=== PATIENT | female | born 1935 | race Caucasian/White ===

== ENCOUNTER 2023-11-06 21:08 | Inpatient (IN) | payer MEDICARE, SELFPAY ==
--- NOTE | ~2023-11-06 | US_ITS ---
EXAMINATION: ULTRASOUND RENAL WITH DOPPLER CLINICAL INFORMATION: Uncontrolled hypertension COMPARISON: None. TECHNIQUE: Real-time grayscale, color Doppler, and duplex Doppler evaluation of the kidneys and renal vasculature was performed. Technical limitations secondary to respiratory motion. FINDINGS: RENAL MEASUREMENTS: Right: 9.4 x 4.3 x 4.5 cm (Sag x AP x TV). No nephrolithiasis or hydronephrosis. Simple appearing cystic focus resulting in measuring up to 2.5 cm, not requiring follow-up. Left: 8.4 x 5.2 x 4.4 cm (Sag x AP x TV). No nephrolithiasis or hydronephrosis. Prevoid urinary bladder volume of 877 mL. Bilateral ureteral jets are identified. Postvoid bladder volume of 619 mL. DOPPLER INTERROGATION: Aorta: 115 cm/sec (of note velocities greater than 100 cm/s cannot be used to calculate the RAR) RIGHT: Main Renal Artery: Proximal: 146 cm/sec Mid: 86 cm/sec Distal: 91 cm/sec Resistive Index: Upper Pole Interlobar: 0.89 Inter Polar Interlobar: 0.81 Lower Pole Interlobar: 0.79 Right renal vein is patent. LEFT: Main Renal Artery: Proximal: 235 cm/sec Mid: 198 cm/sec Distal: 204 cm/sec Resistive Index: Upper Pole Interlobar: 0.71 Inter Polar Interlobar: 0.74 Lower Pole Interlobar: 0.80 Left renal vein is patent. Renal-Aortic Ratio (RAR): Right: Not applicable given mid aortic velocities greater than 100 cm/s Left: Not applicable given mid aortic velocities greater than 100 cm/s US/US renal doppler IMPRESSION: 1. RIGHT: No sonographic evidence of renal artery stenosis in its main segment. Elevated resistivity indices involving the right interlobar renal arteries suggesting elements of hemodynamic alterations in vascular flow. 2. LEFT: Elevated velocities throughout the proximal, mid, and distal segments of the main left renal artery suggesting stenosis. Degree of stenosis utilizing RAR is not calculable given elevated mid aortic velocity greater than 100 cm/s. Elevated interlobar resistivity indices involving the lower pole suggesting elements of hemodynamic alterations in vascular flow. 3. No nephrolithiasis or hydronephrosis. 4. Right renal interlobar simple cyst measuring up to 2.5 cm, not requiring follow-up. 5. Bilateral ureteral jets are identified with significant postvoid residual of 619 mL.
[2023-11-06 22:09] VITALS: BMI 22.9
[2023-11-07] VITALS (9 sets, daily range): BP systolic 174–215; BP diastolic 58–91; PULSE 43–61; RESP 16–18; TEMP 36.2–36.3; O2SAT 95–99
--- NOTE | 2023-11-07 02:30 | PC.ADMIT ---
pt is a hospital to hospital transfer arriving from [facility]. pt is a recent . her approximately 1 month ago. after, her husbands pt was experiencing hallucinations and delusions that a mother and a daughter had moved into her attic. please note pt is [place]. pt is orientatedx3 spheres. she is able to ambulate independently. while at the previous hospital, pt has found to be profoundly htn (245/91). unfortunately pt was also noted to be hyponatremic with initial na+ of 124. pt was placed on 2000ml/day water restriction and started on nacl tablets. her na+ increasing to 130. on arrival, pt signed cv-document. sensorium is intact. pt talks about living alone in her house with her dog. pt is polite and can be easily distracted from the interview. med reconciliation form complete and dr pa notified of admission. please note pt has DNR paper work that has accompanied her and can be found in chart under consent and legal forms.
[2023-11-07 07:53] LABS: MANUAL DIFF FLAG NO
[2023-11-07 08:04] LABS: Basophils Absolute Auto 0.1 X10*3/uL (0.0-0.2); Basophils Percent Auto 0.6 % (0-2); Eosinophils Absolute Auto 0.4 X10*3/uL (0.0-0.4); Eosinophils Percent Auto 3.7 % (0-4); Hemoglobin 11.1 g/dl (12.0-16.0); Imm Gran Abs Auto 0.06 X10*3/uL (0.00-0.03); Imm Gran Pct Auto 0.6 % (0.0-0.4); Lymphocytes Absolute Auto 1.5 X10*3/uL (1.2-4.9); Mean Corpuscular HGB Conc 33.6 g/dl (31.0-35.0); Mean Corpuscular Hemoglobin 31.8 pg (27.0-33.0); Mean Corpuscular Volume 94.6 fL (80.0-98.0); Mean Platelet Volume 9.8 fL (9.4-12.3); Monocytes Absolute Auto 1.3 X10*3/uL (0.1-1.2); Monocytes Percent Auto 12.3 % (2-11); Neutrophils Absolute Auto 7.2 x10*3/uL (2.0-8.3); Neutrophils Percent Auto 68.8 % (45-73); Platelet Count 317 X10*3/uL (160-400); Red Blood Count 3.49 X10*6/uL (4.20-5.50); Red Cell Distribution Width 12.5 % (11.0-16.0); White Blood Count 10.4 X10*3/uL (4.8-10.8)
[2023-11-07 08:13] LABS: Estimated Average Glucose 128 mg/dL; Hemoglobin A1c % 6.1 % (<6.0)
[2023-11-07 08:23] LABS: Alanine Aminotransferase 20 U/L (0-31); Albumin Level 3.7 g/dL (3.5-5.0); Alkaline Phosphatase 90 U/L (39-117); Anion Gap 11 (12-20); Aspartate Amino Transferase 17 U/L (5-31); Bilirubin Total 0.4 mg/dL (0.0-1.0); Blood Urea Nitrogen 11 mg/dL (9-16); Calcium 9.3 mg/dL (8.4-10.2); Carbon Dioxide 22 mmol/L (22-29); Chloride 101 mmol/L (96-108); Cholesterol 194 mg/dL (<200); Creatinine Clr Calc Pharmacy 39.9; Estimated Glomerular Filt Rate > 60; Glucose Fasting 132 mg/dL (60-99); HDL Cholesterol 69 mg/dL (>40); LDL Cholesterol Calculated 108 mg/dL (<100); Potassium 4.5 mmol/L (3.3-5.1); Sodium 129 mmol/L (135-145); Total Protein 6.7 g/dL (6.5-8.0); Triglycerides 85 mg/dL (<150)
[2023-11-07] MEDS: cloNIDine HCL 0.1 MG TABLET PO (08:30)
[2023-11-07 08:38] LABS: TSH reflex Free T4 6.02 uIU/mL (0.32-4.0)
--- NOTE | 2023-11-07 09:24 | P.CONHOSP_ITS ---
History of Present Illness Data of Consult Service Date: 11/07/23 Requesting physician: Negro Burdick Primary Care Provider: Marin Salvador MD [facility] Reason for consult: medical management, htn 88-year-old female with history of anxiety, glaucoma, hearing loss, hypertension, hyperlipidemia, hypothyroidism, chronic hyponatremia, impaired fasting glucose admitted to Geriatric Psychiatry from [facility] with consult placed hospitalist service for medical H&P. The patient denies any complaints at this time. Her blood pressure this morning was significantly 202/58, unclear when the last time she had her antihypertensive agents. There are no focal neurological deficits. While in the ED, hematology studies unremarkable. Renal function within normal limits. She has a chronic hyponatremia with Na 126 at [facility] and chloride 91. She was placed on 2 L fluid restrictions and started on sodium chloride tablets with improvement in sodium to 130. Serum osmolality 253, urine sodium 29, suspected hypotonic hyponatremia/?SIADH. Patient has now received am doses of antihypertensives including 100 mg labetalol, 100 mg losartan, 0.1 mg clonidine, 240 mg diltiazem, and 75 mg hydralazine. Repeat BP 179/78. BP reportedly uncontrolled while admitted at [place]. Review of Systems 2 Review of Systems: General: No fevers, malaise, unintentional weight loss HEENT: No blurred vision, diplopia. No sore throat, nasal congestion, rhinorrhea, sinus pain, ear pain Cardiovascular: No chest pain, palpitations, or leg edema Respiratory: No shortness of breath, wheezing, cough GI: No abdominal pain, nausea, vomiting, diarrhea, constipation, melena, hematochezia : No dysuria, hematuria, increased urinary frequency, decreased urinary output MSK: No myalgia, back pain Neuro: No headaches, weakness, paresthesias Skin: No rashes or lesions [facility] Medical History (Updated 11/07/23 @ 10:15 by KAIT Urrutia) Glaucoma Anxiety Impaired fasting glucose Hyponatremia Hypothyroidism Hyperlipidemia Hypertension Social History Household Members: None Housing: House Do you presently have visiting nurse or other home services: No Patient Tobacco Use Status: Never used Tobacco e-Cigarette/Vaping Use: Never Used Use of substances other than those prescribed or required for medical reasons: No Currently Displaying Signs/Symptoms of Drug Intoxication Withdrawal: No Have you been hit, kicked, punched, or otherwise hurt by someone within the past year? If so, by whom?: No Do you feel safe in your current relationship?: No Current Relationship Is there a partner from a previous relationship who is making you feel unsafe now?: No Are you made to feel afraid or neglected: No Advance Directives: Yes (DNR) Advance Directives Information Provided: Yes Do you have thoughts of harming others: None Do you have a plan to hurt others: No Plan Recently lost weight without trying: No Eating poorly because of decreased appetite: No Nutrition Risks: No Nutritional Risk Patient : No : No Poor oral hygiene: No Meds Allergies Allergy/AdvReac Type Severity Reaction Status Date / Time tramadol Allergy Unknown Unknown Verified 11/06/23 21:53 Active Medications: Current Medications Acetaminophen (Acetaminophen 325 Mg Tablet) 650 mg PO Q6H PRN PRN Reason: Headache/Pain Mild Scale (1-3) Al Hydroxide/Mg Hydroxide (Magnesium Hydrox/Alum Hydrox 30 Ml Oral.Susp) 30 ml PO Q6H PRN PRN Reason: Heartburn/Nausea Brimonidine Tartrate (Brimonidine Tartrate 0.2% Oph 5 Ml Bottle) 1 drop EYE- BOTH TID HINA Diltiazem HCl (Diltiazem Hcl Cd 240 Mg Cap.Er.Deg) 240 mg PO DAILY HINA Famotidine (Famotidine 20 Mg Tablet) 20 mg PO BEDTIME HINA Hydralazine HCl (Hydralazine Hcl 50 Mg Tablet) 50 mg PO Q8H PRN; Protocol PRN Reason: SBP>160 or DBP>100 Hydralazine HCl (Hydralazine Hcl 25 Mg Tablet) 75 mg PO TID HINA Labetalol HCl (Labetalol Hcl 100 Mg Tablet) 100 mg PO TID HINA; Protocol Latanoprost (Latanoprost 0.005 % Ophth Ellen 2.5 Ml Drops) 1 drop EYE-BOTH BEDTIME HINA Levothyroxine Sodium (Levothyroxine Sodium 75 Mcg Tablet) 75 mcg PO DAILY@0630 [facility] Losartan Potassium (Losartan Potassium 50 Mg Tablet) 100 mg PO DAILY [facility] Magnesium Hydroxide (Milk Of Magnesia 30 Ml Oral.Susp) 30 ml PO DAILY PRN PRN Reason: Constipation Melatonin (Melatonin 3 Mg Tablet) 6 mg PO BEDTIME HINA Last Admin: 11/07/23 02:15 Dose: Not Given Olanzapine (Olanzapine 2.5 Mg Tablet) 2.5 mg PO TID PRN PRN Reason: agitation Quetiapine Fumarate (Quetiapine Fumarate 25 Mg Tablet) 25 mg PO BEDTIME HINA Sodium Chloride (Sodium Chloride Tab 1 Gm Tablet) 1 gm PO TID HINA Trazodone HCl (Trazodone Hcl 25 Mg Halftab) 25 mg PO BEDTIME MRX1 PRN PRN Reason: Insomnia Home Medications ?Medication ?Instructions ?Recorded ?Confirmed ?Last Taken ?Type Seroquel 25 mg PO BEDTIME 11/06/23 11/07/23 Unknown History labetalol 100 mg tablet 100 mg PO TID 11/06/23 11/07/23 Unknown History sodium chloride 1,000 mg PO TID 11/06/23 11/07/23 Unknown History DILT-CD 240 mg PO DAILY 11/07/23 11/07/23 Unknown History brimonidine 0.15 % eye drops 1 drp ophthalmic (eye) TID 11/07/23 11/07/23 Unknown History famotidine 20 mg PO BEDTIME 11/07/23 11/07/23 Unknown History hydralazine 75 mg PO TID 11/07/23 11/07/23 Unknown History latanoprost 0.005 % eye drops 1 drp ophthalmic (eye) BEDTIME 11/07/23 11/07/23 Unknown History levothyroxine 0.075 mg PO DAILY@0630 11/07/23 11/07/23 Unknown History losartan 100 mg PO DAILY 11/07/23 11/07/23 Unknown History Physical Exam 2 Vital Signs and Narrative: Vital Signs: BMI result Body Mass Index 22.9 Constitutional - Awake and Alert, No apparent distress Eyes - PERRLA, EOMI Cardiovascular - S1S2, RRR, No edema Respiratory - Normal lung expansion, Normal respiratory effort, No respiratory distress, CTA bilaterally Gastrointestinal - NT / ND; +BS; No rebound or guarding Extremities - no calf tenderness bilaterally, no swelling Musculoskeletal - Normal inspection, normal ROM Skin - Warm/Dry Neurological - Alert & oriented x3, CN II-XII in tact, 5/5 strength BUE and BLE Psychological - Appropriate affect Results Labs 11/07/23 07:49 11/07/23 07:49 Labs: Laboratory Results - last 24 hr 11/07/23 07:49 MCV 94.6 MCH 31.8 MCHC 33.6 RDW 12.5 Plt Count 317 MPV 9.8 Immature Gran % (Auto) 0.6 H Neut % (Auto) 68.8 Lymph % (Auto) 14.0 L [place] % (Auto) 12.3 H Eos % (Auto) 3.7 Baso % (Auto) 0.6 Lymph # (Auto) 1.5 [place] # (Auto) 1.3 H Eos # (Auto) 0.4 Baso # (Auto) 0.1 Abs Immat Gran (auto) 0.06 H Absolute Neuts (auto) 7.2 Absolute Nucleated RBC 0.000 Nucleated RBC % (auto) 0.0 Anion Gap 11 L Estim Creat Clear Calc 39.9 Estimated GFR > 60 Fasting Glucose 132 H Estimat Average Glucose 128 Hemoglobin A1c % 6.1 H Calcium 9.3 Total Bilirubin 0.4 AST 17 ALT 20 Alkaline Phosphatase 90 Total Protein 6.7 Albumin 3.7 Triglycerides 85 Cholesterol 194 LDL Cholesterol, Calc 108 H HDL Cholesterol 69 TSH 6.02 H Assessment and Plan (1) Routine medical exam: Status: Acute Plan 88-year-old female with history of anxiety, glaucoma, hearing loss, hypertension, hyperlipidemia, hypothyroidism, chronic hyponatremia, impaired fasting glucose admitted to Geriatric Psychiatry from [facility] with consult placed hospitalist service for medical H&P. #Mood disorder -plan per psychiatry #Uncontrolled htn -Increase hydralazine to 100mg TID. Continue labetalol 100 mg t.i.d., losartan 100 mg daily, diltiazem 240mg. Avoid thiazide diuretics due to hyponatremia. -check renal doppler to assess for HENRRY -nephrology consult #chronic hyponatremia -serum osm 253, urine sodium 29, likely SIADH -Recommend fluid restrictions to 1.5 L -continue NaCl -nephrology consult #Glaucoma -continue eye drops #hypothyroidism -continue levothyroxine #HLD -continue statin #Prediabetes -hgb a1c 6.1% -recommend diabetic diet if pt agreeable -outpt follow up Thank you for this consult. Will continue following for blood pressure management. Please reach out to hospitalist if SBP >180, DBP>100.
[2023-11-07 09:30] LABS: Free T4 (Free Thyroxine) 0.99 ng/dL (0.71-1.85)
[2023-11-07] MEDS: Losartan Potassium 50 MG TABLET 100 MG PO (09:31)
[2023-11-07] MEDS: hydrALAZINE HCl 25 MG TABLET 75 MG PO (09:32)
--- NOTE | 2023-11-07 09:50 | PC.NURSE ---
pt with hx of HTN, BP 215/86 on r arm, repeated on L arm 202/88, done kyaw on l arm sitting 212/58, asymptomatic, contacted Dr. Gibson and Dr Burdick, new orders for clonidine 0.1 mg. and hospitalist consult.
[2023-11-07] MEDS: Labetalol HCL 100 MG TABLET PO ×3 (10:07→20:42)
[2023-11-07] MEDS: Brimonidine Tartrate 0.2% Oph 5 ML BOTTLE 1 DROP EYE-BOTH ×3 (10:07→20:39)
[2023-11-07] MEDS: dilTIAZem HCL CD 240 MG CAP.ER.DEG PO (10:07)
[2023-11-07] MEDS: Sodium Chloride Tab 1 GM TABLET PO ×3 (10:07→19:58)
--- NOTE | 2023-11-07 11:04 | P.HPPS_ITS ---
HPI Date of Service: 11/07/23 Chief Complaint: Anxiety, Hallucinations Sources of Information: patient interviewed, chart reviewed and crisis/core team assessment reviewed HPI Subjective Notes: [place] Warning and Conditional Voluntary Narrative: The patient is an 88-year-old female, were, mother of 2 adult children, referred from the emergency room of [facility] for continuation of care. According to the crisis assessment, the patient was referred to the emergency room after her daughter's reported the patient had been hallucinating is stating that they are people living in her attic and that she feels scared. The patient lost her 1 year ago and since then she had been isolated, we depressed mood anhedonia lack of energy feelings of hopelessness and poor sleep. She was rushed to the emergency room, she was found to be hyponatremic and admitted into Medicine for stabilization. She was also says by crisis and transferring to this facility after being medically cleared due to psychotic symptoms. On interview, the patient reported that she lost her that she had been extremely sad and depressed. They have been more than 67 years and she feels depressed with depressed mood, anhedonia, lack of energy feelings of hopelessness and worthlessness. She also disclosed that she had been feeling extremely lonely and she may the story regarding voices and people in the attic because she wanted her family to be around. I explained her that her hyponatremia was severe and probably she could have been delirious. The patient admitted that sometimes she can not remember fairly well and when she was in the hospital she was confused at times. The patient wants to be discharged as soon as possible and been brought back to her family. According to the crisis assessment, her daughters were contacted apparently the patient had been having memory problems for several months with lack of functionality. The patient was able to contract for safety and she was willing to continue medical treatment. Past Psychiatric History: No prior psychiatric history Medical Evaluation Reviewed: Yes [facility]LY [facility], [facility] Medical History Glaucoma Anxiety Impaired fasting glucose Hyponatremia Hypothyroidism Hyperlipidemia Hypertension Family History: Denies Social History: The patient lives by herself she was recently , she has good social support provided by her children. Substance History: Denies Trauma History: Denies Diagnostics Vital Signs (24Hr): Vital Signs - 24 hr 11/07/23 07:45 11/07/23 08:00 Temperature 97.4 F Pulse Rate 61 Respiratory Rate 18 Blood Pressure 215/86 H 202/58 H Pulse Oximetry 95 Oxygen Delivery Method Room Air BMI result Body Mass Index 22.9 Labs 11/07/23 07:49 11/07/23 07:49 Labs: Laboratory Results - last 48 hr 11/07/23 07:49 WBC 10.4 RBC 3.49 L Hgb 11.1 L Hct 33.0 L MCV 94.6 MCH 31.8 MCHC 33.6 RDW 12.5 Plt Count 317 MPV 9.8 Immature Gran % (Auto) 0.6 H Neut % (Auto) 68.8 Lymph % (Auto) 14.0 L [place] % (Auto) 12.3 H Eos % (Auto) 3.7 Baso % (Auto) 0.6 Lymph # (Auto) 1.5 [place] # (Auto) 1.3 H Eos # (Auto) 0.4 Baso # (Auto) 0.1 Abs Immat Gran (auto) 0.06 H Absolute Neuts (auto) 7.2 Absolute Nucleated RBC 0.000 Nucleated RBC % (auto) 0.0 Sodium 129 L Potassium 4.5 Chloride 101 Carbon Dioxide 22 Anion Gap 11 L BUN 11 Creatinine 0.80 Estim Creat Clear Calc 39.9 Estimated GFR > 60 Fasting Glucose 132 H Estimat Average Glucose 128 Hemoglobin A1c % 6.1 H Calcium 9.3 Total Bilirubin 0.4 AST 17 ALT 20 Alkaline Phosphatase 90 Total Protein 6.7 Albumin 3.7 Triglycerides 85 Cholesterol 194 LDL Cholesterol, Calc 108 H HDL Cholesterol 69 TSH 6.02 H Free T4 0.99 Meds/Allergies Meds Home Medications ?Medication ?Instructions ?Recorded ?Confirmed ?Type Seroquel 25 mg PO BEDTIME 11/06/23 11/07/23 History labetalol 100 mg tablet 100 mg PO TID 11/06/23 11/07/23 History sodium chloride 1,000 mg PO TID 11/06/23 11/07/23 History DILT-CD 240 mg PO DAILY 11/07/23 11/07/23 History brimonidine 0.15 % eye drops 1 drp ophthalmic (eye) TID 11/07/23 11/07/23 History famotidine 20 mg PO BEDTIME 11/07/23 11/07/23 History hydralazine 75 mg PO TID 11/07/23 11/07/23 History latanoprost 0.005 % eye drops 1 drp ophthalmic (eye) BEDTIME 11/07/23 11/07/23 History levothyroxine 0.075 mg PO DAILY@0630 11/07/23 11/07/23 History losartan 100 mg PO DAILY 11/07/23 11/07/23 History Allergies Allergies Allergy/AdvReac Type Severity Reaction Status Date / Time tramadol Allergy Unknown Unknown Verified 11/06/23 21:53 Mental Status Exam Mental Status Exam Patient Appearance: Appropriate Patient Orientation: Person and Situation Level of Consciousness: Awake and Appropriate Patient Behavior: Guarded and Passive Mood Description: Withdrawn Affect Description: Constricted Patient Cognition Impaired: Yes Ability to Follow Directions: Good Speech Pattern: Clear Hallucinations: None Delusions: Ideas of Reference Thought Process: Distracted and Slowed Thinking Thought Content: positive for Terrell and positive for Poverty of Content Depressive Symptoms: Increased Anxiety and Difficulty Sleeping Judgement: Fair Assessment & Plan Assessment & Plan (1) Dementia: Status: Acute Code(s): F03.90 - Unspecified dementia, unspecified severity, without behavioral disturbance, psychotic disturbance, mood disturbance, and anxiety (2) Delirium: Status: Acute Code(s): R41.0 - Disorientation, unspecified Plan The patient is an elderly female with a past history of high blood pressure no prior psychiatric history who was brought to the facility for psychotic symptoms in the context of hyponatremia and lack of support since her 1 year ago. The patient seems cognitively impaired and apparently she still depressed. Plan 1. Gather collateral information we will try to contact her daughters and get more information. 2. We will do the medical reconciliation and continue with medical workout. 3. Start Remeron 7.5 mg p.o. q.h.s. to target depression. Patient educated on: diagnosis and therapeutic strategies Informed Consent: further education needed Reason for continued inpatient stay Substantial Risk for: inability to function, rapid decompensation and med/psych decompensation Statement Statement: I have reviewed the history and physical and performed a pertinent examination on my patient. No changes have occurred unless specified. If the History and Physical was not performed prior to admission, the Hospitalist's service will be consulted for completing the admission physical. Time Spent With Patient Time: Total time managing care of this patient today _45___ minutes.
[2023-11-07] MEDS: hydrALAZINE HCl 50 MG TABLET 100 MG PO ×2 (14:47→19:58)
[2023-11-07] MEDS: Mirtazapine 7.5 MG TABLET PO (19:59)
[2023-11-07] MEDS: Melatonin 3 MG TABLET 6 MG PO (20:01)
[2023-11-07] MEDS: Famotidine 20 MG TABLET PO (20:01)
[2023-11-07] MEDS: Spironolactone 25 MG TABLET PO (20:07)
[2023-11-07] MEDS: Latanoprost 0.005 % Ophth Sol 2.5 ML DROPS 1 DROP EYE-BOTH (20:41)
[2023-11-07] MEDS: Nitroglycerin 2 % Oint 1 GM Packet 1 INCH TRANSDERMA (20:50)
[2023-11-07] MEDS: QUEtiapine Fumarate 25 MG TABLET PO (22:00)
[2023-11-08] VITALS (7 sets, daily range): BP systolic 142–222; BP diastolic 48–90; PULSE 48–56; RESP 16; TEMP 36.1; O2SAT 96–97
[2023-11-08] MEDS: Spironolactone 25 MG TABLET 50 MG PO (09:04)
[2023-11-08] MEDS: Losartan Potassium 50 MG TABLET 100 MG PO (09:05)
[2023-11-08] MEDS: dilTIAZem HCL CD 240 MG CAP.ER.DEG PO (09:05)
[2023-11-08] MEDS: Levothyroxine Sodium 75 MCG TABLET PO (09:05)
[2023-11-08] MEDS: hydrALAZINE HCl 50 MG TABLET 100 MG PO ×3 (09:05→20:57)
[2023-11-08] MEDS: Brimonidine Tartrate 0.2% Oph 5 ML BOTTLE 1 DROP EYE-BOTH ×3 (09:05→20:56)
[2023-11-08] MEDS: Labetalol HCL 100 MG TABLET PO ×3 (09:05→20:57)
[2023-11-08] MEDS: Sodium Chloride Tab 1 GM TABLET PO ×3 (09:05→20:57)
--- NOTE | 2023-11-08 14:04 | P.PNPSI_ITS ---
Subjective Subjective Date of Service: 11/08/23 Reason For Visit: Anxiety, Hallucinations Subjective Notes: Conditional Voluntary Interim History: The nursing staff reported the patient signed a 3 day notice. She complains of swollen food. The social worker health services spoke with her daughter and apparently the daughter wants her to retract her 3 day notice. Apparently the patient had been losing weight for the last months and she had been neglecting herself. Yesterday the medical team as per nephrology consult and we will follow. On interview the patient denies new symptoms she states that she is feeling fine and wants to be discharged. She states that her grandson has moved to her home to help her out. We will try to get more collateral information. The occupational therapist is going to assess her regarding her cognition with [place] test. Mental Status Exam Mental Status Exam Patient Appearance: Appropriate Patient Orientation: Person and Situation Level of Consciousness: Awake and Appropriate Patient Behavior: Guarded and Passive Mood Description: Withdrawn Affect Description: Constricted Patient Cognition Impaired: Yes Ability to Follow Directions: Good Speech Pattern: Clear Hallucinations: None Delusions: Ideas of Reference Thought Process: Distracted and Evasive Thought Content: positive for [place] and positive for Circumstantial Judgement: Fair Diagnostics Vital Signs (24Hr): Vital Signs - 24 hr 11/07/23 17:54 11/07/23 18:00 11/07/23 19:30 Temperature 97.1 F Pulse Rate 43 L 50 48 L Respiratory Rate 18 18 16 Blood Pressure 199/85 H 200/60 H 184/91 H Pulse Oximetry 99 97 95 Oxygen Delivery Method Room Air Room Air 11/07/23 19:50 11/07/23 21:00 11/07/23 23:01 Temperature Pulse Rate 50 48 L Respiratory Rate 18 16 Blood Pressure 200/70 H 174/60 H 182/66 H Pulse Oximetry 97 Oxygen Delivery Method Room Air 11/08/23 00:00 11/08/23 02:00 11/08/23 04:00 Temperature Pulse Rate Respiratory Rate 16 16 Blood Pressure 168/70 H Pulse Oximetry Oxygen Delivery Method 11/08/23 04:00 11/08/23 08:30 11/08/23 10:30 Temperature Pulse Rate 48 L 56 48 L Respiratory Rate 16 16 16 Blood Pressure 164/76 H 222/90 H 145/48 H Pulse Oximetry 96 97 Oxygen Delivery Method Room Air Room Air BMI result Body Mass Index 22.9 Labs 11/07/23 07:49 11/07/23 07:49 Labs: Laboratory Results - last 48 hr 11/07/23 07:49 WBC 10.4 RBC 3.49 L Hgb 11.1 L Hct 33.0 L MCV 94.6 MCH 31.8 MCHC 33.6 RDW 12.5 Plt Count 317 MPV 9.8 Immature Gran % (Auto) 0.6 H Neut % (Auto) 68.8 Lymph % (Auto) 14.0 L [place] % (Auto) 12.3 H Eos % (Auto) 3.7 Baso % (Auto) 0.6 Lymph # (Auto) 1.5 [place] # (Auto) 1.3 H Eos # (Auto) 0.4 Baso # (Auto) 0.1 Abs Immat Gran (auto) 0.06 H Absolute Neuts (auto) 7.2 Absolute Nucleated RBC 0.000 Nucleated RBC % (auto) 0.0 Sodium 129 L Potassium 4.5 Chloride 101 Carbon Dioxide 22 Anion Gap 11 L BUN 11 Creatinine 0.80 Estim Creat Clear Calc 39.9 Estimated GFR > 60 Fasting Glucose 132 H Estimat Average Glucose 128 Hemoglobin A1c % 6.1 H Calcium 9.3 Total Bilirubin 0.4 AST 17 ALT 20 Alkaline Phosphatase 90 Total Protein 6.7 Albumin 3.7 Triglycerides 85 Cholesterol 194 LDL Cholesterol, Calc 108 H HDL Cholesterol 69 TSH 6.02 H Free T4 0.99 Imaging Radiology Impressions: ITS Impressions Renal Ultrasound 11/07/23 17:37 IMPRESSION: 1. RIGHT: No sonographic evidence of renal artery stenosis in its main segment. Elevated resistivity indices involving the right interlobar renal arteries suggesting elements of hemodynamic alterations in vascular flow. 2. LEFT: Elevated velocities throughout the proximal, mid, and distal segments of the main left renal artery suggesting stenosis. Degree of stenosis utilizing RAR is not calculable given elevated mid aortic velocity greater than 100 cm/s. Elevated interlobar resistivity indices involving the lower pole suggesting elements of hemodynamic alterations in vascular flow. 3. No nephrolithiasis or hydronephrosis. 4. Right renal interlobar simple cyst measuring up to 2.5 cm, not requiring follow-up. 5. Bilateral ureteral jets are identified with significant postvoid residual of 619 mL. Renal Ultrasound 11/07/23 17:37 IMPRESSION: 1. RIGHT: No sonographic evidence of renal artery stenosis in its main segment. Elevated resistivity indices involving the right interlobar renal arteries suggesting elements of hemodynamic alterations in vascular flow. 2. LEFT: Elevated velocities throughout the proximal, mid, and distal segments of the main left renal artery suggesting stenosis. Degree of stenosis utilizing RAR is not calculable given elevated mid aortic velocity greater than 100 cm/s. Elevated interlobar resistivity indices involving the lower pole suggesting elements of hemodynamic alterations in vascular flow. 3. No nephrolithiasis or hydronephrosis. 4. Right renal interlobar simple cyst measuring up to 2.5 cm, not requiring follow-up. 5. Bilateral ureteral jets are identified with significant postvoid residual of 619 mL. Medications Medications Current Medications Acetaminophen (Acetaminophen 325 Mg Tablet) 650 mg PO Q6H PRN PRN Reason: Headache/Pain Mild Scale (1-3) Al Hydroxide/Mg Hydroxide (Magnesium Hydrox/Alum Hydrox 30 Ml Oral.Susp) 30 ml PO Q6H PRN PRN Reason: Heartburn/Nausea Brimonidine Tartrate (Brimonidine Tartrate 0.2% Oph 5 Ml Bottle) 1 drop EYE- BOTH TID [facility] Last Admin: 11/08/23 09:05 Dose: 1 drop Diltiazem HCl (Diltiazem Hcl Cd 240 Mg Cap.Er.Deg) 240 mg PO DAILY [facility] Last Admin: 11/08/23 09:05 Dose: 240 mg Famotidine (Famotidine 20 Mg Tablet) 20 mg PO BEDTIME [facility] Last Admin: 11/07/23 20:01 Dose: 20 mg Hydralazine HCl (Hydralazine Hcl 50 Mg Tablet) 100 mg PO TID [facility] Last Admin: 11/08/23 09:05 Dose: 100 mg Labetalol HCl (Labetalol Hcl 100 Mg Tablet) 100 mg PO TID [facility]; Protocol Last Admin: 11/08/23 09:05 Dose: 100 mg Latanoprost (Latanoprost 0.005 % Ophth Ellen 2.5 Ml Drops) 1 drop EYE-BOTH BEDTIME [facility] Last Admin: 11/07/23 20:41 Dose: 1 drop Levothyroxine Sodium (Levothyroxine Sodium 75 Mcg Tablet) 75 mcg PO DAILY@0630 [facility] Last Admin: 11/08/23 09:05 Dose: 75 mcg Losartan Potassium (Losartan Potassium 50 Mg Tablet) 100 mg PO DAILY [facility] Last Admin: 11/08/23 09:05 Dose: 100 mg Magnesium Hydroxide (Milk Of Magnesia 30 Ml Oral.Susp) 30 ml PO DAILY PRN PRN Reason: Constipation Melatonin (Melatonin 3 Mg Tablet) 6 mg PO BEDTIME [facility] Last Admin: 11/07/23 20:01 Dose: 6 mg Mirtazapine (Mirtazapine 7.5 Mg Tablet) 7.5 mg PO BEDTIME [facility] Last Admin: 11/07/23 19:59 Dose: 7.5 mg Olanzapine (Olanzapine 2.5 Mg Tablet) 2.5 mg PO TID PRN PRN Reason: agitation Quetiapine Fumarate (Quetiapine Fumarate 25 Mg Tablet) 25 mg PO BEDTIME [facility] Last Admin: 11/07/23 22:00 Dose: 25 mg Sodium Chloride (Sodium Chloride Tab 1 Gm Tablet) 1 gm PO TID [facility] Last Admin: 11/08/23 09:05 Dose: 1 gm Spironolactone (Spironolactone 25 Mg Tablet) 50 mg PO DAILY [facility]; Protocol Last Admin: 11/08/23 09:04 Dose: 50 mg Trazodone HCl (Trazodone Hcl 25 Mg Halftab) 25 mg PO BEDTIME MRX1 PRN PRN Reason: Insomnia Allergies Allergies Allergy/AdvReac Type Severity Reaction Status Date / Time tramadol Allergy Unknown Unknown Verified 11/06/23 21:53 Assessment & Plan Assessment & Plan (1) Dementia: Status: Acute Code(s): F03.90 - Unspecified dementia, unspecified severity, without behavioral disturbance, psychotic disturbance, mood disturbance, and anxiety (2) Delirium: Status: Acute Code(s): R41.0 - Disorientation, unspecified Plan 88-year-old female with history of anxiety, glaucoma, hearing loss, hypertension, hyperlipidemia, hypothyroidism, chronic hyponatremia, impaired fasting glucose admitted to Geriatric Psychiatry from [facility] with consult placed hospitalist service for medical H&P. #Mood disorder -plan per psychiatry #Uncontrolled htn -Increase hydralazine to 100mg TID. Continue labetalol 100 mg t.i.d., losartan 100 mg daily, diltiazem 240mg. Avoid thiazide diuretics due to hyponatremia. -check renal doppler to assess for HENRRY -nephrology consult #chronic hyponatremia -serum osm 253, urine sodium 29, likely SIADH -Recommend fluid restrictions to 1.5 L -continue NaCl -nephrology consult #Glaucoma -continue eye drops #hypothyroidism -continue levothyroxine #HLD -continue statin #Prediabetes -hgb a1c 6.1% -recommend diabetic diet if pt agreeable -outpt follow up Plan 1. Gather collateral information. We will try to gather more information regarding family members taking her of her in the community. 2. Continue with cognitive assessments. 3. We will follow the nephrology consult regarding the management of her sodium and blood pressure. 4. Reassessment with the results of the occupational therapist. 5. The patient has adamantly denies psychotic symptoms so we have not added any new medications. Reason for continued inpatient stay Substantial Risk for: inability to function, rapid decompensation and med/psych decompensation Time Spent With Patient Time: Total time managing care of this patient today ___20_ minutes.
--- NOTE | 2023-11-08 18:13 | P.CONNP_ITS ---
History of Present Illness Reason for Consult Consult date: 11/08/23 Chief Complaint Chief complaint: Anxiety, Hallucinations History of Present Illness Narrative: 88-year-old female with long standing hypertension among other medical issues admitted to Geriatric Psychiatry from [facility]. Patient denies any complaints at this time. She has been having high blood pressure with lability. There are no new focal neurological deficits. Renal function within normal limits. She has a chronic hyponatremia . She was placed on 2 L fluid restrictions and started on sodium chloride tablets with improvement in sodium. Hospitalist team has seen patient and consulted nephrology to assist in her clinical care during her current hospital stay. Review of Systems Review of Systems Yes all other systems are reviewed and are negative [facility] Past Medical History Medical History (Updated 11/08/23 @ 18:19 by Florin Kurtz MD) Glaucoma Anxiety Impaired fasting glucose Hyponatremia Hypothyroidism Hyperlipidemia Hypertension Social History Social History Household Members: None Housing: House Do you presently have visiting nurse or other home services: No Patient Tobacco Use Status: Never used Tobacco e-Cigarette/Vaping Use: Never Used Use of substances other than those prescribed or required for medical reasons: No Currently Displaying Signs/Symptoms of Drug Intoxication Withdrawal: No Have you been hit, kicked, punched, or otherwise hurt by someone within the past year? If so, by whom?: No Do you feel safe in your current relationship?: No Current Relationship Is there a partner from a previous relationship who is making you feel unsafe now?: No Are you made to feel afraid or neglected: No Advance Directives: Yes (DNR) Advance Directives Information Provided: Yes Do you have thoughts of harming others: None Do you have a plan to hurt others: No Plan Recently lost weight without trying: No Eating poorly because of decreased appetite: No Nutrition Risks: No Nutritional Risk Patient : No : No Poor oral hygiene: No Meds Allergies Allergy/AdvReac Type Severity Reaction Status Date / Time tramadol Allergy Unknown Unknown Verified 11/06/23 21:53 Active Medications: Current Medications Acetaminophen (Acetaminophen 325 Mg Tablet) 650 mg PO Q6H PRN PRN Reason: Headache/Pain Mild Scale (1-3) Al Hydroxide/Mg Hydroxide (Magnesium Hydrox/Alum Hydrox 30 Ml Oral.Susp) 30 ml PO Q6H PRN PRN Reason: Heartburn/Nausea Brimonidine Tartrate (Brimonidine Tartrate 0.2% Oph 5 Ml Bottle) 1 drop EYE- BOTH TID [facility] Last Admin: 11/08/23 15:57 Dose: 1 drop Diltiazem HCl (Diltiazem Hcl Cd 240 Mg Cap.Er.Deg) 240 mg PO DAILY [facility] Last Admin: 11/08/23 09:05 Dose: 240 mg Famotidine (Famotidine 20 Mg Tablet) 20 mg PO BEDTIME [facility] Last Admin: 11/07/23 20:01 Dose: 20 mg Hydralazine HCl (Hydralazine Hcl 50 Mg Tablet) 100 mg PO TID [facility] Last Admin: 11/08/23 15:51 Dose: 100 mg Labetalol HCl (Labetalol Hcl 100 Mg Tablet) 100 mg PO TID [facility]; Protocol Last Admin: 11/08/23 15:51 Dose: 100 mg Latanoprost (Latanoprost 0.005 % Ophth Ellen 2.5 Ml Drops) 1 drop EYE-BOTH BEDTIME [facility] Last Admin: 11/07/23 20:41 Dose: 1 drop Levothyroxine Sodium (Levothyroxine Sodium 75 Mcg Tablet) 75 mcg PO DAILY@0630 [facility] Last Admin: 11/08/23 09:05 Dose: 75 mcg Losartan Potassium (Losartan Potassium 50 Mg Tablet) 100 mg PO DAILY [facility] Last Admin: 11/08/23 09:05 Dose: 100 mg Magnesium Hydroxide (Milk Of Magnesia 30 Ml Oral.Susp) 30 ml PO DAILY PRN PRN Reason: Constipation Melatonin (Melatonin 3 Mg Tablet) 6 mg PO BEDTIME [facility] Last Admin: 11/07/23 20:01 Dose: 6 mg Mirtazapine (Mirtazapine 7.5 Mg Tablet) 7.5 mg PO BEDTIME [facility] Last Admin: 11/07/23 19:59 Dose: 7.5 mg Olanzapine (Olanzapine 2.5 Mg Tablet) 2.5 mg PO TID PRN PRN Reason: agitation Quetiapine Fumarate (Quetiapine Fumarate 25 Mg Tablet) 25 mg PO BEDTIME [facility] Last Admin: 11/07/23 22:00 Dose: 25 mg Sodium Chloride (Sodium Chloride Tab 1 Gm Tablet) 1 gm PO TID [facility] Last Admin: 11/08/23 15:51 Dose: 1 gm Spironolactone (Spironolactone 25 Mg Tablet) 50 mg PO DAILY [facility]; Protocol Last Admin: 11/08/23 09:04 Dose: 50 mg Trazodone HCl (Trazodone Hcl 25 Mg Halftab) 25 mg PO BEDTIME MRX1 PRN PRN Reason: Insomnia Home Medications ?Medication ?Instructions ?Recorded ?Confirmed ?Last Taken ?Type Seroquel 25 mg PO BEDTIME 11/06/23 11/07/23 Unknown History labetalol 100 mg tablet 100 mg PO TID 11/06/23 11/07/23 Unknown History sodium chloride 1,000 mg PO TID 11/06/23 11/07/23 Unknown History DILT-CD 240 mg PO DAILY 11/07/23 11/07/23 Unknown History brimonidine 0.15 % eye drops 1 drp ophthalmic (eye) TID 11/07/23 11/07/23 Unknown History famotidine 20 mg PO BEDTIME 11/07/23 11/07/23 Unknown History hydralazine 75 mg PO TID 11/07/23 11/07/23 Unknown History latanoprost 0.005 % eye drops 1 drp ophthalmic (eye) BEDTIME 11/07/23 11/07/23 Unknown History levothyroxine 0.075 mg PO DAILY@0630 11/07/23 11/07/23 Unknown History losartan 100 mg PO DAILY 11/07/23 11/07/23 Unknown History Physical Exam Vital Signs: Last Vital Signs Temp 97.1 F 11/07/23 19:30 Pulse 56 11/08/23 15:40 Resp 16 11/08/23 15:40 BP 160/50 H 11/08/23 15:40 Pulse Ox 97 11/08/23 08:30 O2 Del Method Room Air 11/08/23 08:30 BMI result Body Mass Index 22.9 Const General: comfortable and no acute distress HEENT Head: Yes normocephalic Mouth: Normal oral and palatal mucosa present Eyes EOM: EOMs intact bilaterally Neck Neck: Yes supple Resp Auscultation: clear to auscultation bilaterally Cardio Jugular venous distension: no JVD Rate: regular rate GI Palpation (GI): Soft to palpation Auscultation: normal bowel sounds General: Yes no CVA tenderness Back/Spine/Pelvis Back: no CVA tenderness Skin General skin exam: no rashes or lesions noted Neuro General: moves all extremities Extrem General: Yes no pedal edema Results Lab Results 11/07/23 07:49 11/07/23 07:49 Lab results: Chemistry 11/07/23 07:49 Sodium 129 L Potassium 4.5 Carbon Dioxide 22 BUN 11 Creatinine 0.80 Calcium 9.3 Hematology 11/07/23 07:49 WBC 10.4 Hgb 11.1 L Plt Count 317 Assessment and Plan (1) Hypertension: Qualifiers: Hypertension type: renovascular hypertension Qualified Code(s): I15.0 - Renovascular hypertension Status: Acute Plan Known to have hypertension for long time Has HENRRY by Doppler. Added Spironolactone with improvement in BP Could increase Spironolactone to 50 mg daily No indication for any renal angio now Would consider ordering renin/Aldosterone/ Renin-jackson ratio Monitor serum potassium given introduction of Spironolactone Should follow up with [facility] after D/C for continued care Procedures Date of Service Date of Service: 11/08/23
[2023-11-08] MEDS: Latanoprost 0.005 % Ophth Sol 2.5 ML DROPS 1 DROP EYE-BOTH (20:56)
[2023-11-08] MEDS: QUEtiapine Fumarate 25 MG TABLET PO (20:57)
[2023-11-08] MEDS: Melatonin 3 MG TABLET 6 MG PO (20:57)
[2023-11-08] MEDS: Mirtazapine 7.5 MG TABLET PO (20:57)
[2023-11-08] MEDS: Famotidine 20 MG TABLET PO (20:57)
[2023-11-09] VITALS (8 sets, daily range): BP systolic 120–222; BP diastolic 53–89; PULSE 48–60; RESP 18; TEMP 36.1–36.4; O2SAT 94–97; BMI 23.0
[2023-11-09] MEDS: Levothyroxine Sodium 75 MCG TABLET PO (06:24)
[2023-11-09] MEDS: Losartan Potassium 50 MG TABLET 100 MG PO (08:36)
[2023-11-09] MEDS: Labetalol HCL 100 MG TABLET PO ×3 (08:36→20:37)
[2023-11-09] MEDS: Brimonidine Tartrate 0.2% Oph 5 ML BOTTLE 1 DROP EYE-BOTH ×3 (08:36→20:38)
[2023-11-09] MEDS: dilTIAZem HCL CD 240 MG CAP.ER.DEG PO (08:36)
[2023-11-09] MEDS: hydrALAZINE HCl 50 MG TABLET 100 MG PO ×3 (08:37→20:37)
[2023-11-09] MEDS: Spironolactone 25 MG TABLET 50 MG PO (08:37)
[2023-11-09] MEDS: Sodium Chloride Tab 1 GM TABLET PO ×3 (08:37→20:37)
--- NOTE | 2023-11-09 13:40 | P.PNPSI_ITS ---
Subjective Subjective Date of Service: 11/09/23 Reason For Visit: Anxiety, Hallucinations Subjective Notes: Conditional Voluntary and 3 Day Interim History: The nursing staff reported the patient had been common cooperative, requesting to be discharged. Today we had a family meeting with the school social worker and occupational therapist and the patient with her 2 daughters. She is cognitively impaired but family had made arrangements that a grandson will leave with her. On interview the patient wants to be discharged as soon as possible so we are going to arrange the tomorrow. Mental Status Exam Mental Status Exam Patient Appearance: Well Grooomed and Appropriate Patient Orientation: Person and Situation Level of Consciousness: Awake and Appropriate Patient Behavior: Guarded and Passive Mood Description: Withdrawn Affect Description: Constricted Patient Cognition Impaired: Yes Ability to Follow Directions: Good Speech Pattern: Clear Hallucinations: None Delusions: Not Present Thought Process: Distracted and Evasive Thought Content: positive for [place] and positive for [place] of Content Judgement: Poor Diagnostics Vital Signs (24Hr): Vital Signs - 24 hr 11/08/23 15:40 11/08/23 18:00 11/09/23 00:00 Temperature 96.9 F 97 F Pulse Rate 56 52 48 L Respiratory Rate 16 16 18 Blood Pressure 160/50 H 142/77 H 120/53 L Pulse Oximetry 96 97 Oxygen Delivery Method Room Air Room Air 11/09/23 07:00 11/09/23 07:05 11/09/23 08:30 Temperature 97.1 F 97.4 F Pulse Rate 53 60 Respiratory Rate 18 18 Blood Pressure 193/81 H 180/70 H 222/89 H Pulse Oximetry 94 94 Oxygen Delivery Method Room Air Room Air 11/09/23 12:00 Temperature Pulse Rate 54 Respiratory Rate Blood Pressure 129/60 Pulse Oximetry Oxygen Delivery Method BMI result Body Mass Index 23.0 Labs 11/07/23 07:49 11/07/23 07:49 Imaging Radiology Impressions: ITS Impressions Renal Ultrasound 11/07/23 17:37 IMPRESSION: 1. RIGHT: No sonographic evidence of renal artery stenosis in its main segment. Elevated resistivity indices involving the right interlobar renal arteries suggesting elements of hemodynamic alterations in vascular flow. 2. LEFT: Elevated velocities throughout the proximal, mid, and distal segments of the main left renal artery suggesting stenosis. Degree of stenosis utilizing RAR is not calculable given elevated mid aortic velocity greater than 100 cm/s. Elevated interlobar resistivity indices involving the lower pole suggesting elements of hemodynamic alterations in vascular flow. 3. No nephrolithiasis or hydronephrosis. 4. Right renal interlobar simple cyst measuring up to 2.5 cm, not requiring follow-up. 5. Bilateral ureteral jets are identified with significant postvoid residual of 619 mL. Renal Ultrasound 11/07/23 17:37 IMPRESSION: 1. RIGHT: No sonographic evidence of renal artery stenosis in its main segment. Elevated resistivity indices involving the right interlobar renal arteries suggesting elements of hemodynamic alterations in vascular flow. 2. LEFT: Elevated velocities throughout the proximal, mid, and distal segments of the main left renal artery suggesting stenosis. Degree of stenosis utilizing RAR is not calculable given elevated mid aortic velocity greater than 100 cm/s. Elevated interlobar resistivity indices involving the lower pole suggesting elements of hemodynamic alterations in vascular flow. 3. No nephrolithiasis or hydronephrosis. 4. Right renal interlobar simple cyst measuring up to 2.5 cm, not requiring follow-up. 5. Bilateral ureteral jets are identified with significant postvoid residual of 619 mL. Medications Medications Current Medications Acetaminophen (Acetaminophen 325 Mg Tablet) 650 mg PO Q6H PRN PRN Reason: Headache/Pain Mild Scale (1-3) Al Hydroxide/Mg Hydroxide (Magnesium Hydrox/Alum Hydrox 30 Ml Oral.Susp) 30 ml PO Q6H PRN PRN Reason: Heartburn/Nausea Brimonidine Tartrate (Brimonidine Tartrate 0.2% Oph 5 Ml Bottle) 1 drop EYE- BOTH TID [facility] Last Admin: 11/09/23 08:36 Dose: 1 drop Diltiazem HCl (Diltiazem Hcl Cd 240 Mg Cap.Er.Deg) 240 mg PO DAILY [facility] Last Admin: 11/09/23 08:36 Dose: 240 mg Famotidine (Famotidine 20 Mg Tablet) 20 mg PO BEDTIME [facility] Last Admin: 11/08/23 20:57 Dose: 20 mg Hydralazine HCl (Hydralazine Hcl 50 Mg Tablet) 100 mg PO TID [facility] Last Admin: 11/09/23 08:37 Dose: 100 mg Labetalol HCl (Labetalol Hcl 100 Mg Tablet) 100 mg PO TID [facility]; Protocol Last Admin: 11/09/23 08:36 Dose: 100 mg Latanoprost (Latanoprost 0.005 % Ophth Ellen 2.5 Ml Drops) 1 drop EYE-BOTH BEDTIME [facility] Last Admin: 11/08/23 20:56 Dose: 1 drop Levothyroxine Sodium (Levothyroxine Sodium 75 Mcg Tablet) 75 mcg PO DAILY@0630 [facility] Last Admin: 11/09/23 06:24 Dose: 75 mcg Losartan Potassium (Losartan Potassium 50 Mg Tablet) 100 mg PO DAILY [facility] Last Admin: 11/09/23 08:36 Dose: 100 mg Magnesium Hydroxide (Milk Of Magnesia 30 Ml Oral.Susp) 30 ml PO DAILY PRN PRN Reason: Constipation Melatonin (Melatonin 3 Mg Tablet) 6 mg PO BEDTIME [facility] Last Admin: 11/08/23 20:57 Dose: 6 mg Mirtazapine (Mirtazapine 7.5 Mg Tablet) 7.5 mg PO BEDTIME [facility] Last Admin: 11/08/23 20:57 Dose: 7.5 mg Olanzapine (Olanzapine 2.5 Mg Tablet) 2.5 mg PO TID PRN PRN Reason: agitation Quetiapine Fumarate (Quetiapine Fumarate 25 Mg Tablet) 25 mg PO BEDTIME [facility] Last Admin: 11/08/23 20:57 Dose: 25 mg Sodium Chloride (Sodium Chloride Tab 1 Gm Tablet) 1 gm PO TID [facility] Last Admin: 11/09/23 08:37 Dose: 1 gm Spironolactone (Spironolactone 25 Mg Tablet) 50 mg PO DAILY [facility]; Protocol Last Admin: 11/09/23 08:37 Dose: 50 mg Trazodone HCl (Trazodone Hcl 25 Mg Halftab) 25 mg PO BEDTIME MRX1 PRN PRN Reason: Insomnia Allergies Allergies Allergy/AdvReac Type Severity Reaction Status Date / Time tramadol Allergy Unknown Unknown Verified 11/06/23 21:53 Assessment & Plan Assessment & Plan (1) Hypertension: Qualifiers: Hypertension type: renovascular hypertension Qualified Code(s): I15.0 - Renovascular hypertension Status: Acute Code(s): I10 - Essential (primary) hypertension Plan Known to have hypertension for long time Has HENRRY by Doppler. Added Spironolactone with improvement in BP Could increase Spironolactone to 50 mg daily No indication for any renal angio now Would consider ordering renin/Aldosterone/ Renin-jackson ratio Monitor serum potassium given introduction of Spironolactone Should follow up with [facility] after D/C for continued care Reason for continued inpatient stay Substantial Risk for: inability to function, rapid decompensation and med/psych decompensation Time Spent With Patient Time: Total time managing care of this patient today __20__ minutes.
[2023-11-09] MEDS: Melatonin 3 MG TABLET 6 MG PO (20:37)
[2023-11-09] MEDS: Famotidine 20 MG TABLET PO (20:37)
[2023-11-09] MEDS: QUEtiapine Fumarate 25 MG TABLET PO (20:37)
[2023-11-09] MEDS: Latanoprost 0.005 % Ophth Sol 2.5 ML DROPS 1 DROP EYE-BOTH (20:38)
[2023-11-09] MEDS: Mirtazapine 7.5 MG TABLET PO (20:38)
[2023-11-10 03:22] VITALS: BP 169/72; PULSE 56; RESP 18; TEMP 36.3; O2SAT 96
[2023-11-10] MEDS: Levothyroxine Sodium 75 MCG TABLET PO (06:10)
[2023-11-10 08:00] VITALS: BP 214/86; PULSE 58; RESP 18; TEMP 36.6; O2SAT 95
--- NOTE | 2023-11-10 08:01 | PM.PSYDC ---
DS: Providers Provider Date of Service: 11/10/23 Date of admission: 11/06/23 21:08 Date of discharge: 11/10/23 Primary care physician: Marin Salvador MD Consults: 11/06/23 22:21 Consult to Hospitalist Routine Comment: Consulting Provider: Hospitalist Reason For Exam: admission physical 11/07/23 08:12 Consult to Hospitalist Stat Comment: Consulting Provider: Hospitalist Reason For Exam: severe htn 11/07/23 12:00 Consult to Nephrology Routine Consulting Provider: [facility] Reason for consultation: uncontrolled htn. med recommendation. renal doppler pending DS: Diagnosis Discharge Diagnosis (1) Hypertension: Status: Acute DS: Medications Discharge Medications Home Medications: Home Medications ?Medication ?Instructions ?Recorded ?Confirmed Seroquel 25 mg PO BEDTIME 11/06/23 11/07/23 labetalol 100 mg tablet 100 mg PO TID 11/06/23 11/07/23 sodium chloride 1,000 mg PO TID 11/06/23 11/07/23 DILT-CD 240 mg PO DAILY 11/07/23 11/07/23 brimonidine 0.15 % eye drops 1 drp ophthalmic (eye) TID 11/07/23 11/07/23 famotidine 20 mg PO BEDTIME 11/07/23 11/07/23 hydralazine 75 mg PO TID 11/07/23 11/07/23 latanoprost 0.005 % eye drops 1 drp ophthalmic (eye) BEDTIME 11/07/23 11/07/23 levothyroxine 0.075 mg PO DAILY@0630 11/07/23 11/07/23 losartan 100 mg PO DAILY 11/07/23 11/07/23 Mental Status Exam Mental Status Exam Patient Appearance: Well Grooomed and Appropriate Patient Orientation: Person and Situation Level of Consciousness: Awake and Appropriate Patient Behavior: Guarded and Passive Mood Description: Withdrawn Affect Description: Constricted Patient Cognition Impaired: Yes Ability to Follow Directions: Good Speech Pattern: Clear Hallucinations: None Delusions: Not Present Thought Process: Distracted and Slowed Thinking Thought Content: positive for Hulbert, positive for Perseveration and positive for Poverty of Content Judgement: Fair Data Data Completed and Pending Completed studies during hospitalization [Text1]: 11/07/23 07:49 WBC 10.4 RBC 3.49 L Hgb 11.1 L Hct 33.0 L MCV 94.6 MCH 31.8 MCHC 33.6 RDW 12.5 Plt Count 317 MPV 9.8 Immature Gran % (Auto) 0.6 H Neut % (Auto) 68.8 Lymph % (Auto) 14.0 L [place] % (Auto) 12.3 H Eos % (Auto) 3.7 Baso % (Auto) 0.6 Lymph # (Auto) 1.5 [place] # (Auto) 1.3 H Eos # (Auto) 0.4 Baso # (Auto) 0.1 Abs Immat Gran (auto) 0.06 H Absolute Neuts (auto) 7.2 Absolute Nucleated RBC 0.000 Nucleated RBC % (auto) 0.0 Sodium 129 L Potassium 4.5 Chloride 101 Carbon Dioxide 22 Anion Gap 11 L BUN 11 Creatinine 0.80 Estim Creat Clear Calc 39.9 Estimated GFR > 60 Fasting Glucose 132 H Estimat Average Glucose 128 Hemoglobin A1c % 6.1 H Calcium 9.3 Total Bilirubin 0.4 AST 17 ALT 20 Alkaline Phosphatase 90 Total Protein 6.7 Albumin 3.7 Triglycerides 85 Cholesterol 194 LDL Cholesterol, Calc 108 H HDL Cholesterol 69 TSH 6.02 H Free T4 0.99 Imaging Diagnostic Imaging Impressions Renal Ultrasound 11/07/23 17:37 IMPRESSION: 1. RIGHT: No sonographic evidence of renal artery stenosis in its main segment. Elevated resistivity indices involving the right interlobar renal arteries suggesting elements of hemodynamic alterations in vascular flow. 2. LEFT: Elevated velocities throughout the proximal, mid, and distal segments of the main left renal artery suggesting stenosis. Degree of stenosis utilizing RAR is not calculable given elevated mid aortic velocity greater than 100 cm/s. Elevated interlobar resistivity indices involving the lower pole suggesting elements of hemodynamic alterations in vascular flow. 3. No nephrolithiasis or hydronephrosis. 4. Right renal interlobar simple cyst measuring up to 2.5 cm, not requiring follow-up. 5. Bilateral ureteral jets are identified with significant postvoid residual of 619 mL. Renal Ultrasound 11/07/23 17:37 IMPRESSION: 1. RIGHT: No sonographic evidence of renal artery stenosis in its main segment. Elevated resistivity indices involving the right interlobar renal arteries suggesting elements of hemodynamic alterations in vascular flow. 2. LEFT: Elevated velocities throughout the proximal, mid, and distal segments of the main left renal artery suggesting stenosis. Degree of stenosis utilizing RAR is not calculable given elevated mid aortic velocity greater than 100 cm/s. Elevated interlobar resistivity indices involving the lower pole suggesting elements of hemodynamic alterations in vascular flow. 3. No nephrolithiasis or hydronephrosis. 4. Right renal interlobar simple cyst measuring up to 2.5 cm, not requiring follow-up. 5. Bilateral ureteral jets are identified with significant postvoid residual of 619 mL. DS: Summary Hospital Course Hospital Course: The patient is an 88-year-old female, , with no prior psychiatric history who was brought to the emergency room of another hospital out of our catchment area by her family since she reported psychotic symptoms. She was initially admitted into Medicine since the patient was severely hyponatremic. She was assessed by crisis and transferring to this facility for psychiatric stabilization. Please see the HPI of the admission note for further details. On intake, the patient reported that she had been feeling very depressed after the of her a few months ago. She complained of depressed mood, anhedonia, lack of energy feelings of hopelessness and worthlessness. She stated that she made up the story of having auditory hallucinations and visual hallucinations in order to have her children around. It was unclear if she was on delirium at the moment that she reported the psychotic symptoms. On admission, the patient signed a conditional voluntary and she immediately signed a 3 day notice since she wanted to be discharged as soon as possible. We gather collateral information and we contact her family. Apparently the patient had been dysphoric and depressed after the of her . We also did cognitive testing and we informed the family that the patient has dementia and she should continue treatment. The patient was adamant that she wanted to leave and since there were no safety concerns or grounds to file a Section 7 and 8 we needed to discharge her fast. According to the family, 1 of her grandson's will move to her home to help her her out with her activities of daily life. While she was in the unit, she was followed by Medicine and it was clear that the patient has some problems with her kidneys, nephrology consult was asked and they recommend the use of spironolactone. She will be followed by outpatient providers. At the moment of the discharge the patient was future oriented, cooperative pleasant with no evidence of safety concerns. Time spent discussing smoking cessation with patient: 3 to 10 minutes Status at Discharge Cognitive/behavioral status at discharge: Impaired at baseline Functional status at discharge: independent ambulation Overall status at discharge: patient is back to baseline Time Spent with Patient Time attestation: Total time managing care of this patient today __30__ minutes. Time spent: Less than 30 minutes Discharge Plan Discharge Anticipated Discharge Date/Time: 11/10/23 11:00 Patient Disposition: Home, Self-Care Discharge Diagnosis: Major depressive disorder Dementia Referrals: [facility] [Other] - 12/05/23 12:45 pm (Your first telehealth appointment by phone is scheduled for 12/05/23 at 12:45 with Manuel Lozano APRN. Please be aware that they will be sending you some forms in the mail to complete prior to the appointment. Request for counselor also made. ) Lata Salvador MD [Primary Care Provider] - 1 Week (Your providers off will contact you to schedule a follow up appointment.) Discharge Medications: New losartan 50 mg Tablet 100 mg PO DAILY 30 Days Qty: 60 0RF quetiapine 25 mg Tablet 25 mg PO BEDTIME 30 Days Qty: 30 0RF latanoprost 0.005 % Drops 1 drp ophthalmic (eye) BEDTIME 30 Days Qty: 5 0RF diltiazem HCl 240 mg Capsule,Extended Release 24hr 240 mg PO DAILY 30 Days Qty: 30 0RF melatonin 3 mg Tablet 6 mg PO BEDTIME 30 Days Qty: 60 0RF spironolactone 25 mg Tablet 50 mg PO DAILY 30 Days Qty: 60 0RF Protocol: Hold for SBP< HOLD for SBP < : 90 levothyroxine 75 mcg Tablet 75 mcg PO DAILY@0630 30 Days Qty: 30 0RF famotidine 20 mg Tablet 20 mg PO BEDTIME 30 Days Qty: 30 0RF brimonidine 0.2 % Drops 1 drp ophthalmic (eye) TID 30 Days Qty: 5 0RF hydralazine 50 mg Tablet 100 mg PO TID 30 Days Qty: 180 0RF labetalol 100 mg Tablet 100 mg PO TID 30 Days Qty: 90 0RF Protocol: Hold for SBP/HR < HOLD for SBP < : 90 HOLD for HR < : 60 mirtazapine 7.5 mg Tablet 7.5 mg PO BEDTIME 30 Days Qty: 30 0RF sodium chloride 1,000 mg Tablet,Soluble 1,000 mg PO TID 30 Days Qty: 90 0RF Discontinued labetalol 100 mg Tablet 100 mg PO TID Rx Instructions: hold for sbp<100 Seroquel 25 mg PO BEDTIME sodium chloride 1,000 mg PO TID brimonidine 0.15 % Drops 1 drp OPHTHALMIC (EYE) TID Rx Instructions: administer approximately 8 hours apart DILT-CD 240 mg PO DAILY Rx Instructions: (eqv_[id number]) CD 240mg/24 famotidine 20 mg PO BEDTIME hydralazine 75 mg PO TID latanoprost 0.005 % Drops 1 drp ophthalmic (eye) BEDTIME levothyroxine 0.075 mg PO DAILY@0630 losartan 100 mg PO DAILY Discharge Orders: Discharge Order (Routine); Ordered 11/10/23 Ordered By: Moris Medellin Diet: Advance to usual diet Activity on Discharge: As tolerated Stand Alone Forms: Patient Portal Discharge page Print Language: Mongolian Care Plan Goals: Care plan goals achieved in this admission Health Concerns: 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 Plan of Treatment: Continue treatment with outpatient providers. We recommended to start treatment for dementia. Continues an outpatient of depression with Remeron. Assessment: Elderly female with a past history of medical issues but no psychiatric problems was brought initially to another hospital for psychotic symptoms. The patient suffers from depression and dementia stable at this moment no safety concerns ready to go back home. She has good social support.
[2023-11-10] MEDS: Losartan Potassium 50 MG TABLET 100 MG PO (08:16)
[2023-11-10] MEDS: Spironolactone 25 MG TABLET 50 MG PO (08:17)
[2023-11-10] MEDS: Labetalol HCL 100 MG TABLET PO (08:17)
[2023-11-10] MEDS: hydrALAZINE HCl 50 MG TABLET 100 MG PO (08:17)
[2023-11-10] MEDS: dilTIAZem HCL CD 240 MG CAP.ER.DEG PO (08:17)
[2023-11-10] MEDS: Sodium Chloride Tab 1 GM TABLET PO ×2 (08:17→16:09)
[2023-11-10] MEDS: Brimonidine Tartrate 0.2% Oph 5 ML BOTTLE 1 DROP EYE-BOTH ×2 (08:18→15:27)
[2023-11-10 08:28] LABS: Anion Gap 13 (12-20); Blood Urea Nitrogen 15 mg/dL (9-16); Carbon Dioxide 22 mmol/L (22-29); Chloride 99 mmol/L (96-108); Creatinine Clr Calc Pharmacy 32.6; Estimated Glomerular Filt Rate 54; Glucose Random 199 mg/dL (60-115); Potassium 4.6 mmol/L (3.3-5.1); Sodium 129 mmol/L (135-145)
[2023-11-10 12:00] VITALS: BP 135/62; PULSE 52; RESP 18; TEMP 36.4; O2SAT 95
[2023-11-10 15:15] VITALS: BP 144/92; PULSE 52; RESP 18; TEMP 36.4; O2SAT 95
--- NOTE | 2023-11-10 17:18 | PC.NURSE ---
Patient aware of discharge and reported readiness for discharge. D/C instructions, medications, f/u appointments given to the patient and her daughter. Pt verbalized understanding of D/C instructions. Left the unit at 17:05 accompanied by her daughter and her . Took her belongings.
== END 2023-11-10 17:05 | disposition home or self-care (01) | DRG 881 ==
PROVIDERS: Psychiatry & Neurology Psychiatry; Student in an Organized Health Care Education/Training Program; Admitting Provider Psychiatry & Neurology Psychiatry; PCP Internal Medicine; Visit Provider Psychiatry & Neurology Psychiatry
DX: F32.9 Major depressive disorder, single episode, unspecified (principal); E22.2 Syndrome of inappropriate secretion of antidiuretic hormone; E03.9 Hypothyroidism, unspecified; H40.9 Unspecified glaucoma; F03.90 Unspecified dementia, unspecified severity, without behavioral disturbance, psychotic disturbance, mood disturbance, and anxiety; I15.0 Renovascular hypertension; E78.5 Hyperlipidemia, unspecified; R73.03 Prediabetes; Z79.890 Hormone replacement therapy; Z79.899 Other long term (current) drug therapy
CPT/HCPCS: 36415; 76775; 80048; 80053; 80061; 83036; 84439; 84443; 85025; 93975

== ENCOUNTER → 2023-11-06 21:08 | Outpatient (BNV) | payer MEDICARE, SELFPAY | PROVIDERS: Admitting Provider Psychiatry & Neurology Psychiatry; PCP Internal Medicine; Visit Provider Psychiatry & Neurology Psychiatry | DX: F03.90 Unspecified dementia, unspecified severity, without behavioral disturbance, psychotic disturbance, mood disturbance, and anxiety (principal); I15.0 Renovascular hypertension | CPT/HCPCS: 90792; 99231; 99232; 99238 ==

== ENCOUNTER → 2023-11-06 21:08 | Outpatient (BNV) | payer MEDICARE, SELFPAY | PROVIDERS: Admitting Provider Psychiatry & Neurology Psychiatry; PCP Internal Medicine; Visit Provider Internal Medicine Nephrology | DX: I15.0 Renovascular hypertension (principal) | CPT/HCPCS: 99222 ==

== ENCOUNTER → 2023-11-06 21:08 | Outpatient (BNV) | payer MEDICARE, SELFPAY | PROVIDERS: Admitting Provider Psychiatry & Neurology Psychiatry; PCP Internal Medicine; Visit Provider Physician Assistant | DX: Z00.00 Encounter for general adult medical examination without abnormal findings (principal) | CPT/HCPCS: 99499 ==